=== PATIENT | male | born 1940 | race Caucasian/White ===

== ENCOUNTER 2016-11-21 07:48 | Emergency (ER) | payer OTHER ==
[~2016-11-21] VITALS: Ht 175.3 cm; Wt 103.4 kg
--- NOTE | ~2016-11-21 | EKG ---
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 11/21/16 0800 0750 0750 Tiago Guerra MD, FACC /EPI
[2016-11-21 08:14] LABS: HEMATOCRIT 41.7 % (42.0-52.0); HEMOGLOBIN 14.4 gm/dL (14.0-18.0); MCH 30.1 pg (26.0-34.0); MCHC 34.5 g/dL (28.0-37.0); MCV 87.4 fL (80.0-100.0); RBC 4.77 mil/uL (4.50-6.00); WBC 8.4 thou/uL (4.0-11.0)
[2016-11-21 08:20] LABS: ANION GAP 10 mmol/L (7-16); BUN 25 mg/dL (7-18); CALCIUM 10.3 mg/dL (8.5-10.1); CHLORIDE 105 mmol/L (98-107); CO2 22 mmol/L (21-32); CREATININE 1.6 mg/dL (0.7-1.3); GLUCOSE 175 mg/dL (74-106); SODIUM 137 mmol/L (136-145)
[2016-11-21 08:22] LABS: POTASSIUM 4.5 mmol/L (3.5-5.1)
[2016-11-21 08:29] LABS: ALBUMIN 3.6 g/dL (3.4-5.0); ALKALINE PHOSPHATASE 73 U/L (46-116); SGOT 35 U/L (15-37); SGPT 32 U/L (30-65); TOTAL BILIRUBIN 0.8 mg/dL (<0.1-1.0); TROPONIN-I < 0.04 ng/mL (<0.04-0.07)
[2016-11-21 09:36] VITALS: BP 112/48
[2016-11-21] MEDS ORDERED: AMLODIPINE BESY10 MG PO (09:40)
[2016-11-21] MEDS ORDERED: CARDURA4 MG PO (09:41)
[2016-11-21] MEDS ORDERED: ST. JOSEPH ASPI81 MG PO (09:41)
[2016-11-21] MEDS ORDERED: APAP W/CODEINE1 TA2 PO (09:41)
[2016-11-21] MEDS ORDERED: FISH OIL 1,001000 M2 PO (09:42)
[2016-11-21] MEDS ORDERED: CRESTOR10 MG PO (09:42)
[2016-11-21] MEDS ORDERED: LEVEMIR SUBQ (09:44)
[2016-11-21] MEDS ORDERED: LOPERAMIDE 2 MG2 M1 PO (09:44)
[2016-11-21] MEDS ORDERED: METFORMIN HCL500 MG PO (09:45)
[2016-11-21] MEDS ORDERED: VITAMINC500 PO (09:46)
[2016-11-21] MEDS ORDERED: SENNA PLUS TAB1 EACH PO (09:46)
[2016-11-21] MEDS ORDERED: TOPROL XL100 MG PO (09:46)
== END 2016-11-21 09:37 | disposition home or self-care (01) ==
LOC: ER 07:48
PROVIDERS: Emergency Medicine
DX: R06.00 Dyspnea, unspecified (principal)

== ENCOUNTER 2019-02-14 16:45 | Inpatient (IN) | payer OTHER ==
[~2019-02-14] VITALS: Ht 175.3 cm; Wt 89.4 kg
[~2019-02-14 16:45] MED LIST: AMLODIPINE BESY10 MG PO; APAP W/CODEINE1 TA2 PO; CARDURA4 MG PO; CRESTOR10 MG PO; FISH OIL 1,001000 M2 PO; LEVEMIR SUBQ; LOPERAMIDE 2 MG2 M1 PO; METFORMIN HCL500 MG PO; SENNA PLUS TAB1 EACH PO; ST. JOSEPH ASPI81 MG PO; TOPROL XL100 MG PO; VITAMINC500 PO
[2019-02-14 17:26] LABS: HEMATOCRIT 30.7 % (42.0-52.0); HEMOGLOBIN 10.1 gm/dL (14.0-18.0); MCH 30.9 pg (26.0-34.0); MCHC 32.8 g/dL (28.0-37.0); MCV 94.3 fL (80.0-100.0); RBC 3.26 mil/uL (4.50-6.00); WBC 9.8 thou/uL (4.0-11.0)
[2019-02-14 17:33] LABS: CALCIUM 10.3 mg/dL (8.5-10.1); CREATININE 3.5 mg/dL (0.7-1.3); POTASSIUM 4.3 mmol/L (3.5-5.1)
[2019-02-14 17:40] LABS: MAGNESIUM 1.8 mg/dL (1.8-2.4); TOTAL BILIRUBIN 0.7 mg/dL (<0.1-1.0); TOTAL PROTEIN 6.5 g/dL (6.4-8.2)
[2019-02-14 18:48] VITALS: BP 110/58
[2019-02-14 19:25] VITALS: BP 100/66
[2019-02-14 23:59] VITALS: BP 133/73
[2019-02-15 03:13] VITALS: BP 107/66
--- NOTE | 2019-02-15 05:18 | NUR ---
PATIENT IS ALERT AND ORIENTED. PATIENT IS UP WITH 2. PATIENT HAS A REAL FOR RETENTION. PATIENT LBM WAS THE 9TH. PATIENT HAS HISTORY OF A-FIB. PATIENT FELL AT HOME TWO DAYS AGO. PATIENT AMBULATES WITH A WALKER. PATIENT IS RESTING COMFORTABLY IN BED. WCM. PATIENT IS PROGRESSING TO GOALS.
[2019-02-15 07:32] VITALS: BP 119/73
[2019-02-15] MEDS ORDERED: VITAMIN B-1100 M2 PO (07:36)
[2019-02-15] MEDS ORDERED: TYLENOL WITH CO1 TA1 PO (07:37)
[2019-02-15] MEDS ORDERED: ALPRAZOLAM XR3 MG PO (07:39)
[2019-02-15] MEDS ORDERED: ELIQUIS5 MG PO (07:40)
[2019-02-15] MEDS ORDERED: LIPITOR10 MG PO (07:41)
[2019-02-15] MEDS ORDERED: B COMPLEX1 EACH PO (07:42)
[2019-02-15] MEDS ORDERED: CATAPRES0.1 MG PO (07:44)
[2019-02-15] MEDS ORDERED: FLOMAX0.4 MG PO (07:46)
[2019-02-15] MEDS ORDERED: CHOLECALCIFEROL1 GM PO (07:46)
[2019-02-15] MEDS ORDERED: MIRALAX119 GM PO (07:47)
[2019-02-15] MEDS ORDERED: FUROSEMIDE 20 M20 MG PO (07:47)
[2019-02-15] MEDS ORDERED: MELATONIN3 M1 PO (07:48)
[2019-02-15] MEDS ORDERED: ZESTRIL40 MG PO (07:48)
[2019-02-15] MEDS ORDERED: TOPROL XL25 MG PO (07:49)
[2019-02-15] MEDS ORDERED: SENNA PLUS TAB1 EACH PO (07:50)
[2019-02-15] MEDS ORDERED: REQUIP 0.25 M0.25 MG PO (07:50)
[2019-02-15] MEDS ORDERED: TIZANIDINE HCL2 M1 PO (07:51)
[2019-02-15] MEDS ORDERED: FOLGARD TABLET1 EAC1 PO (07:52)
--- NOTE | 2019-02-15 10:17 | NUR ---
Nutrition: Assessed due to consult received for carb controlled diet. pt currently on regular diet with hx HTN, DM. Admit with Acute renal failure. Only BG to assess is 124. Pt reports avoiding pork, cofee and limiting sugar at home. Discussed carb foods to control and other basics of diet and pt voiced understanding. Refused full dietary education but agreed to be placed on Carb controlled diet. Will follow BG trends. Reports good appetite, 100% intake at breakfast. Reported a hx of temporary dialysis this past summer at which time his weight was 225#. Current 197#. Feels decline at that time was related to dialysis/fluid. Place as low nutrition risk for now.
[2019-02-15 13:48] LABS: CALCIUM 9.2 mg/dL (8.5-10.1); POTASSIUM 4.2 mmol/L (3.5-5.1)
[2019-02-15 13:53] LABS: CREATININE 2.4 mg/dL (0.7-1.3)
--- NOTE | 2019-02-15 14:24 | EKG ---
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 : 1940 Requested By: Yonis Gregorio Order Number: [id number] MD: Suhail Blackwell Measurements Intervals [place] Rate: 72 P: RI: QRS: -43 QRSD: 93 T: 14 QT: 396 QTc: 434 Interpretive Statements Atrial fibrillation Left anterior fascicular block Abnormal R-wave progression, late transition Compared to ECG 11/21/2016 07:50:03 Sinus rhythm no longer present Electronically Signed On 02-15-2019 14:23:51 FISHER MUSSEL by Suhail Blackwell [email or web address] <ELECTRONICALLY SIGNED> By: Suhail Blackwell MD 02/15/19 1423 1742 [id number] Suhail Blackwell MD /DARCI
--- NOTE | 2019-02-15 14:49 | NUR ---
INITIAL ASSESSMENT: Consult received. HELEN reviewed chart and spoke with nursing and attending physician. Pt was admitted from [facility] due to acute on chronic renal failure. Pt may possibly discharge back to [facility] over the weekend if medically stable. HELEN spoke with Bee at [facility], who states they are able to accept pt over the weekend if needed. Final discharge orders will need to be faxed when available. Nursing to call report. Transportation to be arranged through [facility] if needed. SW is available to assist should needs arise. [facility]-- [facility]--
[2019-02-15 15:01] VITALS: BP 138/78
--- NOTE | 2019-02-15 18:32 | NUR ---
ASSUMED CARE OF PT AT 0700. PT ALERT AND ORIENTED, IN NO ACUTE DISTRESS. COMPLAINS OF INTERMITTENT NAUSEA. IV FLUIDS INFUSING PER ORDER. GOOD OUTPUT. UNEVENTFUL ON TELEMETRY. VITALKS STABLE. PT PROGRESSING TOWARD POC GOALS.
[2019-02-15 19:36] VITALS: BP 132/80
[2019-02-16 03:42] LABS: HEMATOCRIT 27.1 % (42.0-52.0); HEMOGLOBIN 8.8 gm/dL (14.0-18.0); MCH 30.7 pg (26.0-34.0); MCHC 32.3 g/dL (28.0-37.0); MCV 94.8 fL (80.0-100.0); RBC 2.86 mil/uL (4.50-6.00); RDW 16.6 % (10.5-14.5); WBC 7.4 thou/uL (4.0-11.0)
[2019-02-16 04:11] LABS: CALCIUM 9.2 mg/dL (8.5-10.1); CREATININE 1.9 mg/dL (0.7-1.3); POTASSIUM 4.5 mmol/L (3.5-5.1)
[2019-02-16 04:24] VITALS: BP 130/63
--- NOTE | 2019-02-16 06:25 | NUR ---
PATIENT IS ALERT AND ORIENTED. PATIENT IS SBA. PATIENT HAS REAL FOR URINE RETENTION. PATIENT IS A FIB ON TELE. ACHS ACCUCHECKS FOR DM. PATIENT SLEPT WELL THIS SHIFT. PATIENT HAD BATH. PATIENT DENIES PAIN. PATIENT IS RESTNG COMFORTABLY IN BED. WCM.
[2019-02-16 07:02] VITALS: BP 123/86
[2019-02-16 15:16] VITALS: BP 131/76
--- NOTE | 2019-02-16 17:43 | NUR ---
PATIENT WAS AMBULATED TO BATHROOM THIS AM AND HE DID NOT TOLERATE WELL. HE KEPS SCREAMING, BUT DENIES PAIN. STATES " I AM JUST BEING DRAMATIC, I DON'T HAVE PAIN" HE DID NOT HAVE A BM. ASSISTED BACK TO BED X2 ASSIST. WHEN THERAPY CAME, HE REFUSED TO PARTICIPATE CITING PAIN TO RIGHT LOWER QUADRANT. PRN PAIN MED ADMINISTERED AND IT WAS EFFECTIVE HE SLEPT MOST OF THE DAY. WILL CONT WITH PLAN OF CARE.
[2019-02-16 19:20] VITALS: BP 136/78
[2019-02-17 03:30] VITALS: BP 120/73
--- NOTE | 2019-02-17 04:17 | NUR ---
PATIENT IS ALERT AND ORIENTD. PATIENT IS UP 1-2 MODERATE WITH WALKER. PATIENT DENIES PAIN. PATIENT IS ON ROOM AIR. PATIENT IS RESTING COMFORTABLY IN BED. [facility].
[2019-02-17 07:26] VITALS: BP 140/86
[2019-02-17 15:00] VITALS: BP 156/86
--- NOTE | 2019-02-17 17:44 | NUR ---
PATIENT NOW SLEEPING. RESPIRATIONS ARE NON LABORED. PLEASANT WITH CARES. DOES NOT SEEM IN PAIN OR DISTRESS. WALKED WITH THERAPY FOR A FEW FEET. CONT ON IV FLUIDS. WILL CONT WITH PLAN OF CARE.
[2019-02-17 19:29] VITALS: BP 140/74
[2019-02-18 03:53] VITALS: BP 142/68
--- NOTE | 2019-02-18 05:54 | NUR ---
PT MAKING SLOW PROGRESS TOWARDS GOALS. URINE WITH VERY FOUL ODOR. COLOR IS LIGHT COLD AT TIMES WITH SEDIMENT AND VERY MILKLY/CLOUDY AT OTHER TIMES. AFEBRILE. CONTINUE TO MONITOR.
[2019-02-18 07:13] VITALS: BP 138/87
--- NOTE | 2019-02-18 08:11 | NUR ---
left unit for renal US per w/c
--- NOTE | 2019-02-18 15:39 | NUR ---
SW reviewed chart and spoke with nursing and attending physician. Pt is progressing towards goals for discharge. Discharge back to [facility] with HH is anticipted for tomorrow. raw material planner to fax clinical/therapy updates to the facility for review. HELEN is following to assist as needed with discharge planning.
--- NOTE | 2019-02-18 15:57 | NUR ---
DISCHARGE PLANNING. PATIENT RESIDES AT [facility]. PLAN IS FOR PATIENT TO RETURN TO [facility] TOMORROW, WITH HOME HEALTH SERVICES. PATIENT CLINICAL INFORMATION FAXED TO ELAINE BARRERA AL CHARGE NURSE. CALL PLACED TO ELAINE ORNELAS LIAISON TO NOTIFY.
[2019-02-18 16:22] VITALS: BP 147/92
[2019-02-18 19:15] VITALS: BP 144/71
[2019-02-19 03:58] VITALS: BP 140/74
--- NOTE | 2019-02-19 04:26 | NUR ---
MANAGING PT PAIN WITH TYLENOL, AND PT ONLY REQUEST WAS MELATONIN TO HELP PT SLEEP. VSS, A/0X4, TELE SHOWS AFIB, X1 ASSIST WITH GAITBELT AND WALKER. PER CM NOTE PT SHOULD DC TODAY WITH HH/PT/OT. HOURLY ROUNDING.
[2019-02-19 07:26] VITALS: BP 150/89
--- NOTE | 2019-02-19 14:07 | NUR ---
HELEN reviewed chart and spoke with nursing and attending physician. Discharge orders/summary written for back to his AL apt with services. PT worked with pt after the orders written, and pt was unable to ambulate without pain. Recommendation made for pt to go to post-acute for continued therapy services. HELEN met with pt at bedside to discuss discharge plans. Pt is agreeable with post-acute placement and requests SW contact his dtr, Maraim ([phone]) to discuss placement. HELEN spoke with Mariam via phone. Lengthy discussion regarding post-acute placement. Pt has been to the SNF at [facility] in the past. SW provided options close to [facility] per pt and family request. SW also discussed [facility] consult. Pt's dtr is agreeable with [facility] consult and referral to [facility]. SW discussed admission criteria for [facility]. Pt's dtr verbalized understanding. 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. SW notified [facility] of request for consult. Awaiting input from and [facility]. HELEN updated pt's nurse and attending physician. HELEN is following to assist as needed with discharge planning.
[2019-02-19 16:35] VITALS: BP 148/83
[2019-02-19 20:16] VITALS: BP 152/70
[2019-02-20 03:38] VITALS: BP 139/66
--- NOTE | 2019-02-20 04:28 | NUR ---
PT BEING DOWNGRADED TO M/S AND MOVED TO 4W ROOM 464. VSS, AFIB IS CONTROLLED, REAL REMOVED AND PT USING URINAL TO VOID. PT STATES NO N/V. PAIN IS ASSOCIATYED WITH LEFT HIP AND SCHEDULED FOR A MRI 02/20.
[2019-02-20 05:08] VITALS: BP 132/77
--- NOTE | 2019-02-20 05:23 | NUR ---
PT ASSUMED AT 0500 .PT IS A TRANSFER FROM .PT IS A/O X4.PT IS COORPERATIVE AND PLEASANT.PT REASSESSED AFTER ARRIVED .PT IS ON ROOM AIR AND C/O OF LT HIP PAIN.PT IS TO HAVE AN MRI TODAY .IV ACCESS ON [facility] SL.PT USES URINAL.PT IS UP WITH WALKER AND X1.PT IS ACCUCHECK ACHS. WILL CONTINUE TO MONITOR POC
[2019-02-20 07:48] VITALS: BP 143/88
[2019-02-20 15:58] VITALS: BP 136/86
--- NOTE | 2019-02-20 16:07 | NUR ---
CARE TEAM INDICATED THAT PT IS HAVING INCREASED PAIN. MRI WS ORDERED. [facility] IS FOLLOWING TO SEE IF THEY ARE ABLE TO ACCEPT PT FOR POST ACUTE CARE STAY. IF [facility] IS UNABLE TO ACCEPT [facility] IS ABLE TO ACCEPT. CM TO FOLLOW INDICATED WITH DC PLANNING.
[2019-02-20 17:52] LABS: HEMATOCRIT 27.9 % (42.0-52.0); HEMOGLOBIN 9.1 gm/dL (14.0-18.0); MCH 30.8 pg (26.0-34.0); MCHC 32.7 g/dL (28.0-37.0); MCV 94.2 fL (80.0-100.0); RBC 2.97 mil/uL (4.50-6.00); RDW 15.8 % (10.5-14.5); WBC 7.2 thou/uL (4.0-11.0)
[2019-02-20 18:12] LABS: POTASSIUM 4.3 mmol/L (3.5-5.1)
--- NOTE | 2019-02-20 18:33 | NUR ---
PATIENT SEEN BY JAZMYN PAYNE NP WITH DR. OLSON ON 02/19/19. AWAITING OUTCOME OF PENDING TESTING TO DETERMINE IF PATIENT WOULD BE APPROPRIATE FOR ACUTE REHAB STAY. TESTING COMPLETED AND REVIEW BY DR. OLSON THIS DATE. PATIENT DOES NOT HAVE QUALIFYING DX OR MEDICAL COMPLEXITY THAT WOULD JUSTIFY ACUTE REHAB STAY. DR. OLSNO RECOMMENDING SNF AT DISCHARGE. MESSAGE SENT TO LICENSING SPECIALIST WITH DECISION.
[2019-02-20 18:35] LABS: URINE BILIRUBIN NEGATIVE (Negative); URINE BLOOD 2+ (Negative); URINE CLARITY CLOUDY; URINE COLOR YELLOW; URINE GLUCOSE-RANDOM* TRACE (Negative); URINE KETONES NEGATIVE (Negative); URINE LEUKOCYTES-REFLEX 2+ (Negative); URINE NITRITE-REFLEX POSITIVE (Negative); URINE PROTEIN (DIPSTICK) 3+ (Negative); URINE SPECIFIC GRAVITY 1.025 (1.005-1.035); URINE UROBILINOGEN 0.2 E.U./dl (0.2-1.0)
[2019-02-20 18:45] LABS: BACTERIA-REFLEX >30 Many /HPF (None Seen); CASTS None Seen /LPF (None Seen); CRYSTALS None Seen /LPF (None Seen); SQUAMOUS None Seen /LPF (0-3); URINE RBC 0-2 Rare /HPF (0-2); URINE WBC-REFLEX >25 Many /HPF (0-5)
--- NOTE | 2019-02-20 20:10 | NUR ---
Received awake on bed. Due medications given as prescribed, able to swallow meds w/o difficulty. On room air. Vital signs stable. On blood sugar monitoring-taken and recorded accordingly, no insulin coverage. On carb controlled diet- tolerating well; no nausea, no vomiting and no abdominal pain noted. Able to use urinal but patient complaining that he cannot pass urine. With L hip bruise noted. With SL at R AC- intact. A/w Dr Banerjee's approval if ok to proceed with MRI suggested by Rehab SPRAY MACHINE TENDER. Complaining of pain at L hip- PRN pain medications given as prescribed. For possible discharge to [facility]. Pt complained of excruciating pain on his penis, did bladder scan 507mls- Dr Banerjee informed, may insert vazquez catheter- inserted and able to drain 900mls, asked Dr Banerjee if ok to to do MRI on pt's Left hip- agreed and ordered. Pt went down for MRI, transferred safely and tolerated procedure well. Dr Banerjee rounded on patient this afternoon, ordered consult for Dr Buchanan- US called in consult. Urinalysis specimen sent. tobacco roller nurse informed to take photo of bruise on L hip, to consider putting patient on NPO if with surgery consult. Assisted pt in ADLs. To continue monitoring patient.
--- NOTE | 2019-02-21 03:55 | NUR ---
ASSUMED CARE OF PT AT 1900HRS. PT IS AOX4 AND LETS NEEDS BE KNOWN. FALL PRECAUTION IN PLACE. ERAL IN PLACE AND IS PATIENT. PT PLACED NPO AT MIDNIGHT FOR POSSIBLE PROCEDURE IN THE AM. PT DENIED PAIN OR NAUSEA THIS SHIFT. PT WAS ABLE TO GET COMFORTABLE AND SLEEP PART OF THE SHIFT. VSS AND NO S/S OF ACUTE DISTRESS. WILL CONTINUE TO MONITOR.
[2019-02-21 08:35] VITALS: BP 136/85
[2019-02-21 11:42] VITALS: BP 132/86
--- NOTE | 2019-02-21 12:39 | NUR ---
Nutrition: Seen for early follow up. Pt has been NPO since midnight for possible surgery today. Pt w/ L hip intramuscular hematoma w/ hip pain. Surgery was consulted. During visit, pt states no surgery today d/t blood thinner medication. Will be able to eat now. Eating 50-100% of meals the last few days. 57% meal average since 02/16. Previously on carb controlled diet. BGs fairly well controlled, 130-186 mg/dl (02/19-02/21). Pt admits eating so-so, appetite lower. Biggest limiting factor has been L hip/side pain from falling 1 wk ago. Encouraged focusing on entree/jeronimo protein items as a priority at meals for greatest kcal/nutritional content. Recommended adding on extra protein sides like cottage cheese, yogurt, peanut butter also. Reviewed room service menu with pt to help boost PO intake w/ individualizing meal choices. Low nutrition risk otherwise, pt declined any active nutrition needs.
[2019-02-21 17:15] VITALS: BP 142/69
--- NOTE | 2019-02-21 18:06 | NUR ---
[facility] declined pt and referral was sent to [facility]. They can accept however they will not be able to admit him this evening. They will setup a w/c van pickup at 11am tomorrow. Care team updated. DC orders faxed to admissions at the SNF and chart copy is in place for dc tomorrow am. Nursing to update the pt on dc tomorrow vs jacquie and contact his family.
[2019-02-21 19:45] VITALS: BP 135/86
--- NOTE | 2019-02-21 19:51 | NUR ---
Assumed pt care tthis am, VS have been stable, vazquez cat patent and draining yellow urine. Bruise on the left thigh is prominent and as per the pt pain only comes with movement thus pt did not want to wok with PT nor take medication prior. Pt also wanted to wait for Dr. Buchanan to come and kept himself NPO just in case surgery was to be done for his hematoma. No surgival intervention as per Dr. Buchanan, blood thinners on hold, informed Dr. Banerjee. DC orders given for pt to go to [facility] to be done lynn am at 11 am. Informed the pt, POC followed, pain managed with medication no other signs or verbalizations of distress have been noted.Endorsed tot the night nurse.
--- NOTE | 2019-02-22 05:48 | NUR ---
Pt. rested quietly during the night when checked on during frequent rounds. He offers no c/o pain or discomfort. Bed alarm is on.
[2019-02-22 07:26] VITALS: BP 150/90
--- NOTE | 2019-02-22 11:48 | NUR ---
patient to dc to [facility] today at 1500.Chart copied. [employer] forms faxed. Notfied dtr of transport and timeframe. No further needs.
--- NOTE | 2019-02-22 15:38 | NUR ---
Assumed pt care this am, VS stable, FC in place. CAlled 4 times to [facility] to give report no answer and clinic receptionist refused to take our number for call back, egg caser informed. Diet and medication are well tolerated. Called answering service to inform Dr. Banerjee of the urine lab results. POC followed, no signs or verbalizations of distress have been noted. IV removed, FC kept intact and patent as per Dr. Banerjee. Pt has been picked up by transport, belonings and wallet sent with the pt. Pt is now DC.
--- NOTE | 2019-03-12 16:22 | HC ---
[facility] [place] [address] CONSULTATION Name: ANAMARIA MELO Room #: 464-P [facility] IN M.R.#: [id number] Admission: 02/14/19 Attend Phys: Olivia Banerjee MD Discharge: 02/22/19 Date of : 42 Report #: [id number] THIS REPORT FOR: //name// CC: Olivia Banerjee REASON FOR CONSULTATION: Left gluteus hematoma, large size. HISTORY OF PRESENT ILLNESS: The patient is a 78-year-old who fell in his residence before admission. The patient was admitted on 02/14/2019, patient suspects he fell on 02/12/2019. He said he fell kind of rolling over and then he was able to get up and walk. The patient was subsequently noted to be weak and admitted for evaluation and he was in acute renal failure. Retrospectively, the patient may have had bleeding in that area causing hypovolemia leading to acute renal failure and weakness. There have been some films done of this area, which did not show any fracture. He had a hip, pelvis x-ray and then a repeat hip x-ray a few days later. He has had a hip fracture on the left side, has a nail there. The patient had an MRI yesterday, which showed a large hematoma in the gluteus muscle. This measures 8.8 x 10.3 cm. The patient does have quite a bit of ecchymosis around this area. There is no fracture identified. PHYSICAL EXAMINATION: The patient is alert and oriented, elderly male. 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 He started talking about a surgeon that he knew. The patient has ecchymosis which is fairly significant along the left hip. There is a hematoma that is palpable posteriorly to the ecchymosis area. The hematoma is somewhat difficult to detect on physical exam, but it is suddenly present and it does measure about 10 cm. No redness or signs of infection. IMPRESSION: The patient is a 78-year-old who happened to be on Eliquis and fell. He landed on his back and hip area, 2 days prior to admission, probably bled in this area causing acute renal failure and hypokalemia and weakness. He is on Eliquis which looking at his chart I am not sure why he is on it, he does not know why he is on it. He said that could be high blood pressure, not sure. At this point, I would recommend holding the Eliquis. It may be a little too late for it to effect much, but I think it still will be a good idea to hold it for now. Need to consider whether he should be off of it if he does not have a particular reason to be on it. The patient probably has more risk being on than benefit that he gets out of it. I have instructed the nurse to contact Dr. Banerjee notifying that I am stopping the Eliquis. We will follow. I do not think this is going to require any surgery unless it really hampers his mobility. <ELECTRONICALLY SIGNED> By: Antonio Buchanan MD 03/12/19 1622 1235 22 Antonio Buchanan MD /nt
== END 2019-02-22 15:00 | DRG 683 ==
LOC: ER 16:45 → 4W 18:32 → EROBS 18:32 → 3W 18:32 → 4W 02-20 04:55
PROVIDERS: Emergency Medicine; ADMIT Internal Medicine
DX: N17.9 Acute kidney failure, unspecified (principal); I48.20 Chronic atrial fibrillation, unspecified; E44.1 Mild protein-calorie malnutrition; S30.0XXA Contusion of lower back and pelvis, initial encounter; S70.02XA Contusion of left hip, initial encounter; W18.39XA Other fall on same level, initial encounter; E86.1 Hypovolemia; E87.6 Hypokalemia; E11.22 Type 2 diabetes mellitus with diabetic chronic kidney disease; I12.9 Hypertensive chronic kidney disease with stage 1 through stage 4 chronic kidney disease, or unspecified chronic kidney disease; N18.3 Chronic kidney disease, stage 3 (moderate); N40.1 Benign prostatic hyperplasia with lower urinary tract symptoms; M17.0 Bilateral primary osteoarthritis of knee; K21.9 Gastro-esophageal reflux disease without esophagitis; R07.81 Pleurodynia; R53.81 Other malaise; D63.8 Anemia in other chronic diseases classified elsewhere; Z79.01 Long term (current) use of anticoagulants; Y93.89 Activity, other specified; Y99.8 Other external cause status; Z79.82 Long term (current) use of aspirin; Z79.84 Long term (current) use of oral hypoglycemic drugs; Z79.4 Long term (current) use of insulin; Z79.891 Long term (current) use of opiate analgesic; Z79.899 Other long term (current) drug therapy; Y92.098 Other place in other non-institutional residence as the place of occurrence of the external cause; Z28.21 Immunization not carried out because of patient refusal
CPT/HCPCS: 10040; 10080; 10879